=== PATIENT | female | born 1930 | race Caucasian/White ===

== ENCOUNTER 2017-03-24 03:44 | Emergency (ER) | payer MEDICARE ==
[~2017-03-24] VITALS: Ht 165.1 cm; Wt 90.7 kg
[~2017-03-24 03:44] MED LIST: ASPIRIN EC81 MG PO; ATENOLOL50 MG PO; CIPRO500 MG PO; CODEINE-GUAIFE120 ML PO; DUCODYL5 MG PO; FLAGYL250 MG PO; FLEET ENEMA133 ML RC; HYDROCHLOROTH12.5 MG PO; LOSARTAN POTASS50 MG PO; NORVASC5 MG PO; POTASSIUM CHLO10 MEQ PO; PRILOSEC20 MG PO; TERAZOSIN HCL1 MG PO; TRAMADOL HCL50 MG PO
[2017-03-24] MEDS ORDERED: TYLENOL WITH C1 EACH (04:11)
[2017-03-24] MEDS ORDERED: GABAPENTIN300 MG PO (04:12)
[2017-03-24] MEDS ORDERED: PROBENECID-COL1 EACH PO (04:13)
== END 2017-03-24 04:30 | disposition home or self-care (01) ==
LOC: ED 03:44
DX: M54.6 Pain in thoracic spine (principal); G89.29 Other chronic pain; I10 Essential (primary) hypertension; Z90.49 Acquired absence of other specified parts of digestive tract; Z79.899 Other long term (current) drug therapy
CPT/HCPCS: 99282

== ENCOUNTER 2017-05-18 16:08 | Emergency (ER) | payer MEDICARE ==
[~2017-05-18] VITALS: Ht 165.1 cm; Wt 90.7 kg
[~2017-05-18 16:08] MED LIST changes: +GABAPENTIN300 MG PO; +PROBENECID-COL1 EACH PO; +TYLENOL WITH C1 EACH
[2017-05-18] MEDS ORDERED: PREDNISONE20 MG PO (19:00)
--- NOTE | 2017-05-19 06:44 | EKG ---
[facility] [address] [facility] [place], [place] [address] Signed Normal sinus rhythm Normal ECG No previous ECGs available Confirmed by BIRD TORRES MD ([id number]) on 05/19/2017 6:43:49 AM Electronically Signed By: BIRD TORRES MD 05/19/17 0644 PATIENT NAME: EDEN GONZALEZ Electrocardiogram DATE OF : 30 PHYSICIAN: BIRD TORRES MD REPORT #: [id number] REPORT IS CONFIDENTIAL AND NOT TO BE RELEASED WITHOUT AUTHORIZATION
== END 2017-05-18 19:14 | disposition home or self-care (01) ==
LOC: ED 16:08
DX: R60.0 Localized edema (principal); T40.2X5A Adverse effect of other opioids, initial encounter; I10 Essential (primary) hypertension; Z90.49 Acquired absence of other specified parts of digestive tract; Z88.5 Allergy status to narcotic agent; Z79.899 Other long term (current) drug therapy
CPT/HCPCS: 71020; 71260; 80053; 83735; 84484; 85025; 85379; 93005; 93010; 94640; 96374; 96375; 99284; J1200; J2930; Q9967

== ENCOUNTER 2019-05-25 15:43 | Emergency (ER) | payer MEDICARE ==
[~2019-05-25] VITALS: Ht 165.1 cm; Wt 90.7 kg
[~2019-05-25 15:43] MED LIST changes: +PREDNISONE20 MG PO
[2019-05-25] MEDS ORDERED: BUSPIRONE HCL7.5 MG PO (16:05)
[2019-05-25] MEDS ORDERED: AUGMENTIN 875-1 EACH PO (17:15)
== END 2019-05-25 17:40 | disposition home or self-care (01) ==
LOC: ED 15:43
DX: L02.511 Cutaneous abscess of right hand (principal); I10 Essential (primary) hypertension; Z88.5 Allergy status to narcotic agent; Z79.899 Other long term (current) drug therapy
CPT/HCPCS: 26010; 99282-25

== ENCOUNTER 2019-07-02 08:50 | Day surgery (SDC) | payer MEDICARE ==
[~2019-07-02] VITALS: Ht 165.1 cm; Wt 84.8 kg
--- NOTE | ~2019-07-02 | OR ---
[facility] [address] [place], [place] [address] Draft DATE OF OPERATION: 07/02/2019 SURGEON: Gwyn Linda MD PREOPERATIVE DIAGNOSIS: Persistent basal cell carcinoma, left forehead area. POSTOPERATIVE DIAGNOSIS: Persistent basal cell carcinoma, left forehead area. PROCEDURES: 1. Re-excision of left forehead basal cell carcinoma including additional deep excision. 2. A-T flap closure of forehead and face. ANESTHESIA: General LMA, Gwyn Hurtado CRNA. INDICATION: This 89-year-old white woman is a patient of Nikia Yip. She was noted to have a basal cell carcinoma of her left forehead area over the lateral aspect of the eyebrow, underwent excision by her senior radiation protection technician elsewhere. She was identified to have a basal cell carcinoma with positive margins. Additional excision was undertaken under local anesthesia in the office on May 05, 2019. Unfortunately, final pathology report showed the lateral margin positive for basal cell carcinoma and deep margin also positive necessitating additional resection. She is here at this time to undergo re-excision of the site with closure. She may require a flap given its location and so forth. The risks of bleeding, infection, cosmetic deformity, persistently a positive margin and other unforeseen complications including nerve injury and so forth were all reviewed with her. She understands and wished to proceed. FINDINGS: The scar was widely excised including laterally and deeply. Additional excision was undertaken after the full-thickness excision demonstrated a nodule. Small branches of the temporal artery were secured as well. An A-T excision was undertaken so as to minimize any distortion of her orbit or eyelid areas. Good viability of the flap was noted. DESCRIPTION OF PROCEDURE: The patient was brought to the operating room, given a general anesthetic by LMA PATIENT NAME: EDEN GONZALEZ OPERATIVE REPORT DATE OF : 30 REPORT #: [id number] PHYSICIAN: GWYN LINDA MD PCP: NIKIA YIP REPORT IS CONFIDENTIAL AND NOT TO BE RELEASED WITHOUT AUTHORIZATION [facility] [address] [place], [place] [address] Draft technique. Preoperative antibiotic Ancef was given. An atrial fibrillation rhythm is noted. The area in question was the face was prepared with a DuraPrep solution and draped sterilely. The lesion in question was encircled and potential flaps either horizontal advancement flaps or T-type flap was designed. Excision was undertaken sharply and with electrocautery and maintaining a plane to avoid a regional nerve injury. Complete excision was undertaken. Photographs were taken. Palpation of the deep margin of the excised skin showed the nodule in question with positive margin. On that basis, additional deeper tissue was excised. It was deemed most likely beneficial without ocular distortion to provide for an A-T type flap closure. A flap was developed superiorly, laterally and medially, so as to not distort the eyebrow area at all. Incision was made cephalad in the midportion allowing for the superomedial and superolateral portions of the flap to migrate inferiorly. The flaps were then secured to the inferior aspect of the wound and these were secured with interrupted 3-0 Vicryl. The skin was then closed with a running 4-0 nylon transversely and interrupted 4-0 nylon vertically. Bacitracin was applied as was gauze dressing. Photographs were taken throughout. The patient was ultimately extubated and transferred to recovery room in good condition having suffered no complications. Sponge, needle, and count reported as correct x3. MD KIMBERLY Rivera/SANKET /[id number] cc: VENKATA Marsh Copies: NIKIA YIP PATIENT NAME: EDEN GONZALEZ OPERATIVE REPORT DATE OF : 30 REPORT #: [id number] PHYSICIAN: GWYN LINDA MD PCP: NIKIA YIP REPORT IS CONFIDENTIAL AND NOT TO BE RELEASED WITHOUT AUTHORIZATION [address] [address] Draft ~ PATIENT NAME: EDEN GONZALEZ OPERATIVE REPORT DATE OF : 30 REPORT #: [id number] PHYSICIAN: GWYN LINDA MD PCP: NIKIA YIP REPORT IS CONFIDENTIAL AND NOT TO BE RELEASED WITHOUT AUTHORIZATION
--- NOTE | ~2019-07-02 | OR ---
[facility] [address] [place], [place] [address] Draft DATE OF OPERATION: 07/02/2019 SURGEON: Gwyn Linda MD PREOPERATIVE DIAGNOSES: 1. Dysmorphic left eyelid related to recent A-T flap closure of 3 cm forehead defect. 2. Reexcision of basal cell carcinoma. POSTOPERATIVE DIAGNOSES: 1. Dysmorphic left eyelid related to recent A-T flap closure of 3 cm forehead defect. 2. Reexcision of basal cell carcinoma. PROCEDURE: Revision of facial flap (change of A-T flap to bipedicle H-flap). ANESTHESIA: General LMA; Gwyn Hurtado CRNA. INDICATION: This 89-year-old white woman had basal cell carcinoma over the lateral aspect of her left eyebrow. She underwent re-excision by me in the office in April and was found to have a positive margin deeply and laterally. This was despite a relatively large excision to begin with and primary closure. She is admitted today to undergo excision and possible flap closure of the defect. She understood the risks of bleeding, infection, cosmetic deformity, and so forth and wished to proceed. FINDINGS: Attention was oriented superiorly more than I had expected causing elevation of the lateral eyebrow and orbital structures, and freeing of the flap tension allowed for reduction to a more normal position. A bipedicle H-flap was then designed to orient the tension horizontally over the forehead rather than superiorly in the lateral aspect. The flap viability appeared good, and cosmetic and functional result much better. DESCRIPTION OF PROCEDURE: The patient was brought to operating room, given a general anesthetic by LMA technique. Preoperative antibiotic Ancef was given in the operating room. The forehead and face were photographed and the area prepared with a DuraPrep solution and draped sterilely. The sutures from the prior flap closure were removed, freeing the tension on the superior aspect of the eyebrow area. Immediate reduction to an acceptable appearance was then noted. PATIENT NAME: EDEN GONZALEZ OPERATIVE REPORT DATE OF : 30 REPORT #: [id number] PHYSICIAN: GWYN LINDA MD PCP: NIKIA MORENO REPORT IS CONFIDENTIAL AND NOT TO BE RELEASED WITHOUT AUTHORIZATION [facility] [address] [place], [place] [address] Draft Flaps had been developed superiorly, medially, and laterally to allow for the T-flap. It was deemed more advisable to provide H-flap. An incision was made laterally and medially based on the central vertically-oriented incision, and further elevation of the scalp superiorly was undertaken. The midportion of the H-flap was joined in the center with interrupted 3-0 Vicryl and intermittent areas inferiorly taking special care to avoid lifting of the brow or periorbital soft tissues. Freeing of the scalp superiorly allowed for mobility inferiorly to the horizontal flaps and this was secured with interrupted 2-0 Vicryl in deep dermal layer as well as a single 2-0 nylon to the galea, near but not contiguous with the H advancement flaps. Similarly, the midportion of the advanced H-flaps was secured to the galea rather than to the muscle and skin near the eyebrow itself. The skin was then closed with meticulous care using interrupted 4-0 nylon suture. Complete closure was afforded. Photographs were taken. There was a much improved appearance of the left orbit and eyebrow in relation to the large defect that had been excised. Bacitracin was applied as was a sterile gauze dressing. She was allowed to emerge from anesthesia, taken to recovery room in good condition having suffered no complication. Sponge, needle, and instrument counts reported as correct x3. MD KIMBERLY Rivera/HELENEL /[id number] cc: VENKATA Marsh Copies: NIKIA MORENO ~ PATIENT NAME: EDEN GONZALEZ OPERATIVE REPORT DATE OF : 30 REPORT #: [id number] PHYSICIAN: GWYN LINDA MD PCP: NIKIA MORENO REPORT IS CONFIDENTIAL AND NOT TO BE RELEASED WITHOUT AUTHORIZATION
[~2019-07-02 08:50] MED LIST changes: +AUGMENTIN 875-1 EACH PO; +BUSPIRONE HCL7.5 MG PO
--- NOTE | 2019-07-02 10:27 | NUR ---
PATIENT ASSISTED TO BATHROOM WITH PERSONAL FRONT WHEELED WALKER. GAIT STEADY TO AND FROM BATHROOM. PATIENT BACK IN BED. WARM BLANKET GIVEN. FAMILY MEMBERS AT BEDSIDE. CALL LIGHT WITHIN REACH.
--- NOTE | 2019-07-02 13:29 | NUR ---
07/02/19 1329 Janice Stewart 1310- PT ARRIVES TO PACU NONAROUSABLE TO NOXIOUS STIMULI WITH AN OPA IN PLACE. RESP EVEN AND UNLABORED. OXYGEN SAT LOW TO MID 90'S ON 10L VIA MASK. 1312- PT AROUSING AND TRYING TO PULL OUT HER OPA. PT INSTRUCTED TO OPEN HER MOUTH. PT INITIALLY HAS THE OPA CLUNCHED BETWEEN HER TEETH. PT WAS ABLE TO OPEN HER MOUTH AFTER A COUPLE INSTRUCTIONS WERE REPEATED. OPA REMOVED. OXYGEN REPLACED. 1316- PT SAT UP IN BED AND ENCOURAGED TO COUGH AND DEEP BREATHE. PT IS ABLE TO CLEAR HER THROAT, DOES NOT COUGH. 1325- PT PLACED ON 2L VIA NC HER OXYGEN SAT KEEPS DROPPING TO 88% ON RA. PT CONTINUES TO BE ENCOURAGED TO COUGH AND DEEP BREATHE. PT REMAINS UNABLE TO FOLLOW THIS COMMANDS EFFECTIVELY AND CLEARS HER THROAT ONLY. PT KEEPS ASKING WHERE SHE IS. PT UPDATED EACH TIME THAT SHE IS DONE WITH SURGERY AND IN THE RECOVERY ROOM.
[2019-07-02] MEDS ORDERED: IBUPROFEN600 MG PO (13:42)
[2019-07-02] MEDS ORDERED: OXYCODON-ACETA1 EAC2 PO (13:42)
[2019-07-02] MEDS ORDERED: TYLENOL EXTRA500 MG PO (13:42)
--- NOTE | 2019-07-02 15:05 | NUR ---
PATIENT BACK IN DAY SURGERY ROOM FROM PACU. PATIENT SLIGHTLY DROWSY, BUT EASILY AWAKENS TO NORMAL VOICE. VS CHECKED. C/O PAIN 2/10 AT LEFT FOREHEAD. LEFT FOREHEAD DRESSING CDI. LEFT EYE ELEVATED DUE TO STITCHES. PATIENT WAITING FOR RETURN TO OR TO REDUE STITCHES. IV SITE WNL. SALINE LOCKED FOR NOW. SCDs ON. CALL LIGHT WITHIN REACH.
--- NOTE | 2019-07-02 15:49 | NUR ---
1530: VS CHECKED. PATIENT ASSISTED OOB TO BEDSIDE COMMODE. VOID WITHOUT DIFFICULTY. PATIENT ASSISTED BACK TO BED WITH USING PERSONAL FWW. PATIENT COMPLAINING OF PAIN AT SURGICAL SITE. UNABLE TO RATE. WARM BLANKETS GIVEN. CALL LIGHT WITHIN REACH.
--- NOTE | 2019-07-02 16:20 | NUR ---
1612: VS CHECKED. MEDICATED FOR LEFT FOREHEAD PAIN WITH IV FENTANYL. PATIENT CHATTING ON PHONE WITH FAMILY MEMBERS. CALL LIGHT WITHIN REACH.
--- NOTE | 2019-07-02 21:27 | NUR ---
07/02/192126 Brenda Major 1955 PATIENT INTO PACU FROM OR, GWYN PHELPS AT BEDSIDE TO PROVIDE BEDSIDE REPORT. PATIENT DROWSY, WITH EYES CLOSED, AIRWAY IN PLACE WITH NO ADDITIONAL SUPPORT. DRESSING INTACT, SMALL AMOUNT OF DRAINAGE NOTED TO BLUE CHUX AND PILLOW. BREATHING EQUAL. 2009 PATIENT OPENING EYES AND MOANING IN PAIN. GWYN PHELPS PULLED OUT ORAL AIRWAY. 2114 AT THIS TIME NOTED MASK SLIDING UP ONTO SURGICAL DRESSING WITH PATIENT MOVING HEAD BACK AND FORTH. REMOVED AMRIK AND PLACED NASAL CANULA @4L MAINTAINING SATURATION >92%. 2029 NEW ORDER RECIEVED TO MEDICATE PATIENT. SATURATION 90% ON 4L NC. PATIENT THRASHING IN BED AND ATTEMPTING TO PULL AT DRESSING, PATIENT TEARFUL, STATES " I WANT TO GET OUT OF HERE". 2034 MEDICATED PATIENT, APPEARS TO BE RESTING WITH IMPROVED CALMNESS, RESTING ON LEFT SIDE. CONTINUES TO REQUEST SIPS OF WATER. STATES " I WANT MY DOG". 2044 PATIENT TITRATED TO 2LNC MAINTAINING SATURATION 92%. PATIENT APPEARS TO HAVE IMPROVED PAIN, WILL NOT RATE PAIN. NO REORTS OF NAUSEA OR VOMITING. DRESSING INTACT WITH SMALL AMOUNT OF DRAINAGE. PATIENT APPEARS AAOX3. 2099 PATIENT TRANSFERED TO MEDICAL FLOOR, REPORT TO NOLAN SARKRA. REPOSITONED PATIENT IN BED. ANSWERED ALL QUESTIONS AND CONCERNS. RT HUMPHRIES IN ROOM AT THIS TIME TO ASSESS BREATHING.
--- NOTE | 2019-07-02 21:34 | NUR ---
PT ARRIVED TO FLOOR @2100. SHE WAS SLID OVER TO BED ON DRAWSHEET 3PA. SHE IS ON 2LNC RR IS EVEN AND NONLABORED. CPOX WAS PLACED, PT IS ALERT AND ORIENTED BUT VERY SLEEPY. SHE RATES PAIN AT 5/10 THEN FALLS BACK ASLEEP. PT ORIENTED TO ROOM AND CALL LIGHT USE. BED ALARM IS ON AND CALL LIGHT IS CLOSE.
--- NOTE | 2019-07-02 22:34 | NUR ---
ASSESSMENT, VS AND I&O COMPLETED. ICE WATER PROVIDED. HEAD PAIN /10, PRN PAIN MED PROVIDED. SURGERY SITE CDI, WNL. LUNGS CLEAR IN ALL LOBES. PT UP TO BSC, 2PA, FWW. NO OTHER NEEDS, CALL LIGHT IN REACH.
--- NOTE | 2019-07-03 00:05 | NUR ---
WITH THE HELP FROM ANTONINA MC WE HELPED PT TO THE BSC AND BACK TO BED WITH A GAIT BELT AND HER WALKER. BEDSIDE TABLE AND CALL LIGHT IN REACH. I GAVE HER A DRINK OF WATER PER HER REQUEST. VITALS DONE AND CHARTED. BED ALARM SET. PT NEEDS NOTHING MORE AT THIS TIME.
--- NOTE | 2019-07-03 01:12 | NUR ---
WITH THE HELP OF ANTONINA MC WE HELPED PT TO THE BSC AND BACK TO BED WITH HER FWW. BEDSIDE TABLE AND CALL LIGHT IN REACH. SCD'S PLUGGED BACK IN. PT NEEDS NOTHING MORE AT THIS TIME.
--- NOTE | 2019-07-03 01:16 | NUR ---
PT UP TO BSC, 1PA, FWW, BACK TO BED. PAIN /10. PT DENIES THE NEED FOR FURTHER PAIN INTERVENTION. NO OTHER NEEDS, CALL LIGHT IN REACH.
--- NOTE | 2019-07-03 02:43 | NUR ---
PT RESTING IN BED, EYES CLOSED. RR 18, EVEN, UNLABORED. CPOX 96% ON 1L NC. BED ALARM ON, RAILS UP. CALL LIGHT IN REACH.
--- NOTE | 2019-07-03 04:22 | NUR ---
VITALS AND I&OS DONE AND CHARTED. FRESH WATER GIVEN. BEDSIDE TABLE AND CALL LIGHT IN REACH.
--- NOTE | 2019-07-03 04:25 | NUR ---
ASSESSMENT COMPLETED. CPOX 96%, NC 1L. PT TITRATED OFF O2. CPOX 94%, RA. NO OTHER NEEDS, CALL LIGHT IN REACH.
--- NOTE | 2019-07-03 05:14 | NUR ---
HELPED PT TO THE BSC AND BACK TO BED WITH HER FWW. SCD'S PUT BACK ON. CLEANED UP WATER SHE HAD SPILLED ON THE FLOOR FROM HER CUP. BEDSIDE TABLE AND CALL LIGHT IN REACH. EMPTIED GARBAGES.
--- NOTE | 2019-07-03 05:27 | NUR ---
PT SLEPT MOST THE NIGHT. PAIN MANAGED WITH PRN MEDS. NO NAUSEA REPORTED. PT TOLERATED FLUIDS AND SCDs WELL. BANDAGE HAS SCANT, RED DRAINAGE. VSS, UO SUFFICIENT. IV WNL, FLUSHED WELL, CDI. O2 TITRATED, CURRENTLY RA, CPOX 94%.
--- NOTE | 2019-07-03 06:41 | NUR ---
PT RESTING IN BED, EYES CLOSED. RR 16, EVEN, UNLABORED. CPOX 94%, RA. CALL LIGHT IN REACH.
--- NOTE | 2019-07-03 06:56 | NUR ---
PT UP TO BR, FWW, SBA, BACK TO BED. CPOX 94%, RA. NO OTHER NEEDS, CALL LIGHT IN REACH.
--- NOTE | 2019-07-03 07:36 | NUR ---
Patient awake lying in bed. Respirations equal and unlabored on RA. Patient reports pain from incision site above left eye, requests tylenol. Call light in reach.
[2019-07-03] MEDS ORDERED: NEOSPORIN OIN28.3 GM TOP (08:49)
--- NOTE | 2019-07-03 10:40 | NUR ---
Patient up in chair. Patients niece in room. Reviewed discharge instructions with patient including follow up care with physician, wound care and signs and symptoms of infection. Person verbalized understanding. Patient sating at 93% on room air. No reports of pain. Provided patient transportation to vehicle. Niece driving patient home.
--- NOTE | 2019-07-06 09:16 | PATH ---
[facility] [address] [place], [place] [address] Signed SPECIMEN(S): A LEFT FOREHEAD SPECIMEN(S): B ADDITIONAL DEEP MARGIN SPECIMEN(S): C ADDITIONAL MEDIAL TISSUE SPECIMEN(S): D ADDITIONAL LATERAL TISSUE SPECIMEN SOURCE: A. LEFT FOREHEAD B. ADDITIONAL DEEP MARGIN C. ADDITIONAL MEDIAL TISSUE D. ADDITIONAL LATERAL TISSUE CLINICAL HISTORY: Pre: Basal cell carcinoma left forehead re-excision. FINAL PATHOLOGIC DIAGNOSIS: A. Skin, left forehead, excision: - Residual basal cell carcinoma, nodular, micronodular, and infiltrative types; focally present at medial margin, see Comment. - Postsurgical site change. B. Additional deep margin, excision: - Fibroadipose tissue and skeletal muscle with focal suture granuloma and chronic inflammation. - Negative for carcinoma. C. Skin, additional medial tissue, excision: - Benign skin and subcutaneous tissue, see comment. - Negative for malignancy. D. Skin, additional lateral tissue, excision: - Mild chronic folliculitis, see comment. - Subcutaneous tissue with no histopathologic abnormality. - Negative for malignancy. COMMENT: With the short superior stitch designated as the 12 o'clock and the long lateral stitch designated as the 3 o'clock, the basal cell carcinoma is focally present at approximately 8-9 o'clock medial margin. No basal cell carcinoma is seen in the additional medial tissue. Correlation with operative findings is recommended. Demodex organisms are seen within the hair follicles of specimen A, C, and D. As part of [employer]' Quality Improvement Program, this case was reviewed by another member of our pathology staff. NAL:cml:C1NR PATIENT NAME: EDEN GONZALEZ PATHOLOGY DATE OF : 30 REPORT #: [id number] PHYSICIAN: CARMINA PATHOLOGY PCP: NIKIA MORENO REPORT IS CONFIDENTIAL AND NOT TO BE RELEASED WITHOUT AUTHORIZATION [facility] [address] [place], [place] [address] Signed MICROSCOPIC EXAMINATION: Histologic sections of all submitted blocks are examined by light microscopy. These findings, together with the gross examination, support the pathologic diagnosis. GROSS DESCRIPTION: Four specimens are received in four containers, labeled "VM." A. The specimen, labeled "VM, A" and "left forehead" on the requisition, is received in formalin and consists of a 3.2 x 2.3 x 0.4 cm rubbery pink wrinkled ovoid portion of skin. A long stitch is present at one tip designating lateral, and a short stitch is along one edge designating superior. The superior edge is placed at 12:00 and the lateral tip is placed at 3:00. The margins are inked as follows: 12:00 to 3:00blue, 3:00 to 6:00 to 9:00black, and 9:00 to 12:00green. The skin surface demonstrates a central 1.3 x 1.1 cm ill-defined pink to mejias granular area that is located 0.6 cm from the closest margin at 6:00. The cut surfaces are mottled priest-yellow. The specimen is serially sectioned perpendicular to the 9:00 to 3:00 axis and entirely submitted from 9:00 to 3:00 in cassettes A1-A3. B. The specimen, labeled "VM, B" and "additional deep margin" on the requisition, is received in formalin and consists of a 2.1 x 1.5 x 0.2 cm rubbery priest-yellow flat portion of tissue. One surface is marked blue and the opposite is marked black. The specimen is serially sectioned and entirely submitted in cassette B1. C. The specimen, labeled "VM, C" and "additional medial tissue" on the requisition, is received in formalin and consists of a 1.0 x 0.9 x 0.6 cm rubbery pink to mejias smooth triangular portion of skin. The surgical margin is marked with blue ink. The specimen is trisected and entirely submitted in cassette C1. D. The specimen, labeled "VM, D" and "additional lateral tissue" on the requisition, is received in formalin and consists of a 2.1 x 1.2 x 0.6 cm rubbery pink to mejias wrinkled irregular portion of skin. The surgical margin is marked with blue ink. The cut surfaces are mottled priest-yellow. The specimen is serially sectioned and entirely submitted in cassette D1. SS (under the direct supervision of a pathologist) The Gross Description was prepared using a voice recognition system. The report was reviewed for accuracy; however, sound-alike word errors, addition PATIENT NAME: EDEN GONZALEZ PATHOLOGY DATE OF : 30 REPORT #: [id number] PHYSICIAN: CARMINA MEJIAS PCP: NIKIA MORENO REPORT IS CONFIDENTIAL AND NOT TO BE RELEASED WITHOUT AUTHORIZATION [address] [address] Signed and/or deletions may occur. If there is any question about this report, please contact Client Services. PERFORMING LABORATORY: The technical component was performed by [facility], [address] [place] [id number] (Advertising Assistant Manager: Rebecca Roe MD; CLIA# [id number]). [facility] [address] [place] [address] (CLIA# [id number]). Diagnostician: Michelle Gutierrez MD Pathologist Diagnostician: Randy Vásquez MD Pathologist Electronically Signed 07/06/2019 Copies: ~ PATIENT NAME: EDEN GONZALEZ PATHOLOGY DATE OF : 30 REPORT #: [id number] PHYSICIAN: CARMINA MEJIAS PCP: NIKIA MORENO REPORT IS CONFIDENTIAL AND NOT TO BE RELEASED WITHOUT AUTHORIZATION
== END 2019-07-03 10:35 | disposition home or self-care (01) ==
LOC: MS 08:50 → DS 08:50 → MS 19:30 → DS 07-03 10:35
PROVIDERS: Surgery
PROC: 0HX1XZZ Transfer Face Skin, External Approach (ICD-10-PCS; principal; 2019-07-02 10:15)
DX: C44.319 Basal cell carcinoma of skin of other parts of face (principal); L92.8 Other granulomatous disorders of the skin and subcutaneous tissue; L73.9 Follicular disorder, unspecified; I10 Essential (primary) hypertension; E11.9 Type 2 diabetes mellitus without complications; G47.30 Sleep apnea, unspecified; M10.9 Gout, unspecified; G89.29 Other chronic pain; I48.91 Unspecified atrial fibrillation; K21.9 Gastro-esophageal reflux disease without esophagitis; Z79.899 Other long term (current) drug therapy; Z91.048 Other nonmedicinal substance allergy status
CPT/HCPCS: 00300; 94762; A9270; J0131; J0690; J1100; J1885; J2704; J3010; J7121

== ENCOUNTER 2019-09-24 15:26 | Emergency (ER) | payer MEDICARE ==
[~2019-09-24] VITALS: Ht 165.1 cm; Wt 84.8 kg
[~2019-09-24 15:26] MED LIST changes: +IBUPROFEN600 MG PO; +NEOSPORIN OIN28.3 GM TOP; +OXYCODON-ACETA1 EAC2 PO; +TYLENOL EXTRA500 MG PO
[2019-09-24] MEDS ORDERED: NORCO 5-325 TA1 EACH PO (17:30)
--- NOTE | 2019-09-24 22:21 | EKG ---
[facility] [address] [facility] [place], [place] [address] Signed Atrial fibrillation Nonspecific ST and T wave abnormality Abnormal ECG When compared with ECG of 29-JUN-2019 12:03, No significant change was found Confirmed by BIRD TORRES MD ([id number]) on 09/24/2019 10:21:26 PM Electronically Signed By: BIRD TORRES MD 09/24/19 222 PATIENT NAME: EDEN GONZALEZ Electrocardiogram DATE OF : 30 PHYSICIAN: BIRD TORRES MD REPORT #: [id number] REPORT IS CONFIDENTIAL AND NOT TO BE RELEASED WITHOUT AUTHORIZATION
== END 2019-09-24 18:01 | disposition home or self-care (01) ==
LOC: ED 15:26
DX: S43.102A Unspecified dislocation of left acromioclavicular joint, initial encounter (principal); M54.5 Low back pain; I10 Essential (primary) hypertension; Z88.5 Allergy status to narcotic agent; Z79.899 Other long term (current) drug therapy; W19.XXXA Unspecified fall, initial encounter
CPT/HCPCS: 72100; 73030; 80048; 81001; 84484; 85025; 93005; 93010; 99284-25